=== PATIENT | male | born 1970 | race Caucasian/White ===

== ENCOUNTER 2023-08-23 14:55 | Emergency (ER) | payer OTHER, SELFPAY ==
--- NOTE | ~2023-08-23 | XR_ITS ---
EXAMINATION: XR hand RT min 3V DATE: 08/23/2023 17:23 INDICATION: Right hand injury and pain. TECHNIQUE: 3 views of right hand were obtained. COMPARISON: None. FINDINGS: Bone alignment is normal. There is an old healed fracture of neck of fifth metacarpal. No a cute fracture. There is mild osteoarthritis of triscaphe joint and first-third metacarpophalangeal raul ints. IMPRESSION: 1. Mild polyarticular osteoarthritis. Reviewed, dictated and finalized at location A. S [employer]
[2023-08-23 15:01] VITALS: BP 119/97; PULSE 88; RESP 16; TEMP 37; O2SAT 97
[2023-08-23 17:04] VITALS: BP 154/97; PULSE 77; RESP 18; O2SAT 98
--- NOTE | 2023-08-23 17:42 | ED.SKABFB ---
HPI - Skin/Abscess/Foreign Bdy General Chief complaint: Skin/Abscess/Foreign Body Stated complaint: R hand pain x weeks Time Seen by Provider: 08/23/23 17:06 Source: patient Mode of arrival: ambulatory Limitations: no limitations History of Present Illness HPI narrative: This is a 53 year old male that presents to the ER for possible foreign body in the nail. Reports he has some fiber glass stuck under his nail. It has been there a couple weeks and is painful. Denies fever or redness. Related Data Allergies Allergy/AdvReac Type Severity Reaction Status Date / Time No Known Allergies Allergy Unverified 08/23/23 16:59 Review of Systems Review of Systems: CONSTITUTIONAL: Denies fever SKIN: Denies erythema or edema All systems reviewed & are unremarkable except as noted in HPI and below PMFSH Past Medical History Medical History (Updated 08/23/23 @ 18:04 by Andra Barrera PA-C) History of hyperlipidemia Social History Social History (Updated 08/23/23 @ 17:43 by Andra Barrera PA-C) Smoking status: Former smoker Exam Narrative: GENERAL: Well-appearing, well-nourished, and in no acute distress. HEAD: Normocephalic, atraumatic. EYES: EOMI. EXTREMITIES: Normal range of motion. No edema, erythema or abnormal drainage. No foreign bodies seen. SKIN: Warm, dry, no rash. NEURO: No focal deficits. Alert and oriented x3. PSYCH: Normal mood and affect Course Course Emergency Course: Patient educated on further wound care Vital Signs Vital signs: Vital Signs Temperature 98.6 F 08/23/23 15:01 Pulse Rate 88 08/23/23 15:01 Respiratory Rate 16 08/23/23 15:01 Blood Pressure 119/97 H 08/23/23 15:01 Pulse Oximetry 97 08/23/23 15:01 Oxygen Delivery Room Air 08/23/23 15:01 Temperature 98.6 F 08/23/23 15:01 Pulse Rate 77 08/23/23 17:04 Respiratory Rate 18 08/23/23 17:04 Blood Pressure 154/97 H 08/23/23 17:04 Pulse Oximetry 98 08/23/23 17:04 Oxygen Delivery Room Air 08/23/23 15:01 Procedures Nerve Block Nerve Block 1: Nerve block date: 08/23/23 Nerve block time: 18:07 Local Anesthetic: lidocaine 1% Amount of anesthesia used (mL): 4 Side: right Nerve Blocks: digital Procedure Successful: Yes Patient Tolerated Procedure: well and no complications Complications: none Additional Comments: No foreign body was seen in the area of concern MDM - Skin/Abscess/Foreign Bdy MDM Narrative Medical decision making narrative: Patient presents to the emergency department for possible foreign body in the right 3rd digit. Reports he got fiberglass in the nail a couple of weeks prior. He was able to get some of it out. Was unsure if there is maybe still some stuck in there. I did explore the area and I did not find any further foreign bodies. X-ray is also without any evidence of foreign body. The area was cleansed and covered with antibiotic ointment and a bandage. He was instructed on further wound care. He was updated on his tetanus vaccination. He is to follow up with his primary provider. He was given warnings to return to the ER Differential Diagnosis Differential diagnosis: Likely other (foreign body, skin irritation) Imaging Data Radiologist's impression: ITS Impressions Hand X-Ray 08/23/23 17:24 IMPRESSION: 1. Mild polyarticular osteoarthritis. Critical Care Time Critical Care Time Critical Care Time: No Discharge Plan Discharge Clinical Impression: Foreign body (FB) in soft tissue Patient Disposition: Home, Self-Care Condition: Stable Instructions: Soft Tissue Foreign Body (ED) Additional Instructions: Return to the emergency department if you experience fever, redness or swelling of your wound, abnormal drainage from your wound, or any other symptoms that are concerning to you. Apply antibiotic ointment daily. Clean with mild soap and water daily. Warm soa
[2023-08-23] MEDS: TETANUS,DIPHTHERIA,AC PERTUSSIS ADULT (0.5 ML) BOOSTRIX IM (18:03)
== END 2023-08-23 18:29 | disposition home or self-care (01) ==
LOC: ANHED 18:26
PROVIDERS: Emergency Provider Physician Assistant; PCP Internal Medicine
DX: S60.452A Superficial foreign body of right middle finger, initial encounter (principal); Z23 Encounter for immunization; E78.5 Hyperlipidemia, unspecified; Z87.891 Personal history of nicotine dependence; M19.041 Primary osteoarthritis, right hand; W45.8XXA Other foreign body or object entering through skin, initial encounter
CPT/HCPCS: 73130; 90471; 90715; 99283